=== PATIENT | male | born 1955 | race Caucasian/White ===

== ENCOUNTER 2018-06-05 17:39 | Emergency (ER) | payer BC ==
[~2018-06-05] VITALS: Ht 188 cm; Wt 113.4 kg
[2018-06-05 17:44] VITALS: BP_SYST 160
[2018-06-05 18:03] VITALS: BP_SYST 148
== END 2018-06-05 18:03 | disposition home or self-care (01) ==
LOC: SED 17:39
DX: T63.441A Toxic effect of venom of bees, accidental (unintentional), initial encounter (principal); I10 Essential (primary) hypertension; Y92.89 Other specified places as the place of occurrence of the external cause
CPT/HCPCS: 99283